=== PATIENT | female | born 1995 | race Hispanic/Latino ===

== ENCOUNTER 2021-08-02 01:27 | Emergency (ER) | payer OTHER ==
[~2021-08-02] VITALS: Ht 154.9 cm; Wt 81.6 kg
[2021-08-02 03:36] VITALS: BP 119/66
== END 2021-08-02 04:10 | disposition left against medical advice (07) ==
LOC: EDH 01:27
DX: F41.9 Anxiety disorder, unspecified (principal); Z53.21 Procedure and treatment not carried out due to patient leaving prior to being seen by health care provider